=== PATIENT | male | born 1985 | race Two or more races ===

== ENCOUNTER 2025-01-15 16:02 | Emergency (ER) | payer OTHER ==
[~2025-01-15] VITALS: Ht 188 cm; Wt 109.0 kg
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
--- NOTE | 2025-01-15 18:00 | DVH ---
EXAM: XY L SHOULDER 2+ VIEW XRAY REASON FOR EXAM: trauma TECHNIQUE: Internally and externally rotated AP views and grashey view of the left shoulder are submi tted for review. COMPARISON: None FINDINGS: The bones demonstrate normal mineralization. There is no acute fracture or dislocation. The re is no widening of the acromioclavicular joint. The soft tissues are grossly unremarkable. IMPRESSION: No acute fracture or dislocation.
--- NOTE | 2025-01-15 18:07 | DVH ---
Indication: trauma Technique: XY LUMBAR SPINE 3 VIEWXY Comparison: None FINDINGS/IMPRESSION: Lumbar vertebral body heights maintained. [id number]-[id number] multilevel disc space narrowing most pron ounced at L5-S1. Alignment preserved. Mild bilateral sacroiliac degenerative joint disease.
[2025-01-15] MEDS ORDERED: HYDROcodone-ACET 5/325MG TAB PO ONE (18:45)
[2025-01-15] MEDS ORDERED: HYDR-4902 PO (18:46)
[2025-01-15 19:23] VITALS: BP 134/80; PULSE 80; RESP 18; TEMP 98; O2SAT 98
== END 2025-01-15 20:01 | disposition home or self-care (01) ==
LOC: ER 16:06
DX: S40.012A Contusion of left shoulder, initial encounter (principal); M54.50 Low back pain, unspecified; M19.90 Unspecified osteoarthritis, unspecified site; Z98.890 Other specified postprocedural states; Z88.1 Allergy status to other antibiotic agents; V98.8XXA Other specified transport accidents, initial encounter; Y93.89 Activity, other specified; Y92.89 Other specified places as the place of occurrence of the external cause; Y99.8 Other external cause status
CPT/HCPCS: 72100; 73030